=== PATIENT | female | born 1960 | race Caucasian/White ===

== ENCOUNTER → 2019-03-29 | Day surgery (SDC) | payer BC ==
[2019-03-28 12:18] LABS: Basophils # (auto) 0.1 uL; Hematocrit 36.1 % (36.0-46.0); Lymphocytes # (auto) 1.7 uL; Mean Corpuscular Hemoglobin 26.8 pg (28.0-32.0); Mean Corpuscular Hgb Conc. 34.2 g/dL (32.0-36.0); Monocytes # (auto) 0.5 uL; Nucleated Red Blood Cells % 0.1 %; White Blood Cell 7.4 10^3/uL (4.4-10.8)
[2019-03-28 12:20] LABS: Basophils % (auto) 1.8 % (0.0-2.0); Eosinophils # (auto) 0.4 uL; Eosinophils % (auto) 5.2 % (0.0-7.0); Hemoglobin 12.3 g/dL (12.2-16.2); Lymphocytes % (auto) 22.9 % (10.0-50.0); Mean Corpuscular Volume 78.4 fL (80.0-100.0); Neutrophils # (auto) 4.7 uL; Neutrophils % (auto) 63.1 % (37.0-80.0); Platelet Count (auto) 163 10^3/uL (140-450); Red Cell Distribution Width 16.9 % (11.8-14.3)
[2019-03-28 12:21] LABS: Urine Bacteria FEW /hpf (None Seen); Urine Blood 2+ /uL (Negative); Urine Budding Yeast FEW /hpf (None Seen); Urine Mucus FEW (None Seen); Urine Specific Gravity 1.017 (1.001-1.035); Urine WBC 133 /hpf (0 - 5)
[2019-03-28 12:32] LABS: INR 1.07 (0.9-1.15); Partial Thromboplastin Time 27.5 sec (23.64-32.05)
[2019-03-28 13:20] LABS: Albumin 3.5 g/dL (3.4-5.0); Calcium 8.5 mg/dL (8.5-10.1)
[2019-03-28 13:25] LABS: BUN/Creatinine Ratio 22.4; Bilirubin, Total 0.6 mg/dL (0.2-1.0); Total Protein 6.9 g/dL (6.4-8.2)
[~2019-03-29] VITALS: Ht 162.6 cm; Wt 133.8 kg
[~2019-03-29] MED LIST: ATOR20TA50 PO; FERR-7 PO; IRBE150T26 PO; LEVO175T33 PO; MULTCAP45 PO; POTA99TA3 PO; SITA50TA28 PO; ceFOXitin 2GM/100ML 100 ML IV ONE
[2019-03-29 11:35] VITALS: BP 138/75
== END | disposition home or self-care (01) ==
LOC: SUR 10:41
PROVIDERS: ATTEND Urology
DX: Z01.818 Encounter for other preprocedural examination (principal); N13.2 Hydronephrosis with renal and ureteral calculous obstruction; K44.9 Diaphragmatic hernia without obstruction or gangrene; K80.20 Calculus of gallbladder without cholecystitis without obstruction; K76.0 Fatty (change of) liver, not elsewhere classified; Z79.899 Other long term (current) drug therapy
CPT/HCPCS: 36415; 74018; 74176; 80053; 81001; 82962; 85025; 85610; 85730; 86850; 86900; 86901; 87086; J0694